=== PATIENT | female | born 1985 | race Caucasian/White ===

== ENCOUNTER 2017-07-26 09:43 | Emergency (ER) | payer OTHER ==
[2017-07-26 09:49] VITALS: BP 129/87; PULSE 104; TEMP 98.6; BMI 37.3
--- NOTE | 2017-07-26 11:21 | PDOC ---
History of Present Illness - General Chief Complaint: Sore Throat Stated Complaint: Sore Throat Time Seen by Provider: 07/26/17 10:53 History Source: Patient Exam Limitations: No Limitations - History of Present Illness Initial Comments: 07/26/17 11:16 Patient is here with complaints of one week cough, cold symptoms, runny nose from cleared now turned to yellow green and low-grade fevers. 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 Has used svnw-zop-ghrhmpu medications with minimal resolved. Timing/Duration: unsure, 1 week Severity: mild, moderate Associated Symptoms: reports: chest pain, cough, fever/chills, headaches, malaise Past History - Travel Traveled outside of the country in the last 30 days: No Close contact w/someone who was outside of country & ill: No - Past Medical History Allergies/Adverse Reactions: Allergies Allergy/AdvReac Type Severity Reaction Status Date / Time No Known Allergies Allergy Verified 07/26/17 09:49 Home Medications: Ambulatory Orders Azithromycin [Zithromax -] 250 mg PO UTDICT #6 tab 07/26/17 COPD: No DVT: No Diabetes: No - Suicide/Smoking/Psychosocial Hx Smoking History: Never smoked Hx Alcohol Use: Yes (SOCIAL) Drug/Substance Use Hx: No Substance Use Type: None Review of Systems - Review of Systems Able to Perform ROS?: Yes Is the patient limited Libyan proficient: Yes Constitutional: Yes: Symptoms Reported, See HPI, Fever, Malaise HEENTM: Yes: Symptoms Reported, See HPI, Nose Congestion Respiratory: Yes: Symptoms reported, See HPI, Cough. No: Shortness of Breath, Wheezing Musculoskeletal: Yes: Symptoms Reported Integumentary: Yes: Symptoms Reported, See HPI. No: Bruising Neurological: Yes: See HPI. No: Symptoms reported, Headache All Other Systems: Reviewed and Negative *Physical Exam - Vital Signs Last Vital Signs Temp Pulse Resp BP Pulse Ox 98.6 F 104 H 20 129/87 100 07/26/17 09:45 07/26/17 09:45 07/26/17 09:45 07/26/17 09:45 07/26/17 09:45 - Physical Exam General Appearance: Yes: Appropriately Dressed, Apparent Distress HEENT: positive: NADIYA, Normal ENT Inspection, TMs Normal (congested but landmarks intact ), Pharynx Normal, Nasal Congestion, Rhinorrhea, Sinus Tenderness. negative: Tonsillar Exudate, Tonsillar Erythema, TM Bulging Neck: positive: Supple. negative: Tender, Lymphadenopathy (R), Lymphadenopathy (L) Respiratory/Chest: positive: Lungs Clear, Normal Breath Sounds Gastrointestinal/Abdominal: positive: Normal Bowel Sounds, Soft. 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, Fully Oriented, Alert, Normal Mood/ Affect, Normal Response, Motor Strength 5/5 *DC/Admit/Observation/Transfer Diagnosis at time of Disposition: Common cold - Discharge Dispostion Disposition: HOME Condition at time of disposition: Stable Admit: No - Prescriptions Prescriptions: Azithromycin [Zithromax -] 250 mg PO UTDICT #6 tab - Referrals Referrals: STAFF,NOT ON [Primary Care Provider] - - Patient Instructions Printed Discharge Instructions: DI for Common Cold Additional Instructions: Rest, drink lots of fluids: Teas, water, soups, Pedialyte Saltwater gargles Steamy showers/seem to face break up mucus Avoid contact with others until fevers and cough resolved Lots of handwashing and good hygiene Continue clzb-wuz-hkbtpct medications for symptomatic relief Tylenol or Motrin for fever and pain Azithromycin, to start if symptoms worsen, fevers go greater than 101, ear pain , sore throat pain, worsening of symptoms Followup with private physician in one to 2 days as needed Return to emergency department for worsened symptoms, fevers, dehydration - Post Discharge Activity Forms/Work/School Notes: Back to Work
== END 2017-07-26 11:30 | disposition home or self-care (01) ==
LOC: JERFT 09:43
DX: J00 Acute nasopharyngitis [common cold] (principal)
CPT/HCPCS: 99281-25

== ENCOUNTER 2019-06-18 06:35 | Inpatient (IN) | payer OTHER ==
[2019-06-18] MEDS ORDERED: ELECTROLYTE-148 SOLN 1,000 ML IV SCH ×3 (06:45→08:15)
[2019-06-18] MEDS ORDERED: ePHEDrine SULFATE 50 MG/1 ML AMPULE ONE (07:27)
[2019-06-18] MEDS ORDERED: morphine SULFATE/PF 0.5 MG/ML (2cc Syringe - QUVA) ONE (07:34)
[2019-06-18] MEDS ORDERED: ROCURONIUM BROMIDE 50 MG/5 ML VIAL ONE (07:35)
[2019-06-18] MEDS ORDERED: CITRIC ACID/SODIUM CITRATE 30 ML UNIT-DOSE CUP PO ONE (07:45)
[2019-06-18 08:01] VITALS: BMI 42.8
[2019-06-18] MEDS ORDERED: ONDANSETRON 4 MG/2 ML VIAL IVPUSH PRN (08:03)
--- NOTE | 2019-06-18 08:04 | HP ---
Past Medical History - Primary Care Physician PCP:: Negrita Mcintosh - Admission Chief Complaint: Prev CS x 1. AMA. 39 week. Obesity History of Present Illness: 33 yo 2 P1 EDC 06/25/19 EGA 39 week admitted ama obesity with prev CS for repeat CS History Source: Patient Limitations to Obtaining History: No Limitations - Past Medical History ...: 2 ...Para: 1 Heme/Onc: Yes: Other (Sickle cell trait) - Past Surgical History Past Surgical History: Yes: Hx Myomectomy: No Hx Transabdominal Cerclage: No - Smoking History Smoking history: Never smoked Have you smoked in the past 12 months: No - Alcohol/Substance Use Hx Alcohol Use: Yes (SOCIAL) History of Substance Use: reports: None - Social History Usual Living Arrangement: Yes: With Spouse Do you think of yourself as: Straight/Heterosexual History of Recent Travel: No Home Medications - Allergies Allergies/Adverse Reactions: Allergies Allergy/AdvReac Type Severity Reaction Status Date / Time No Known Allergies Allergy Verified 06/18/19 07:19 - Home Medications Home Medications: Ambulatory Orders Vitamins (Sjr) - 1 tab PO DAILY 06/14/19 Review of Systems - Review of Systems Constitutional: reports: No Symptoms Eyes: reports: No Symptoms HENT: reports: No Symptoms Neck: reports: No Symptoms Cardiovascular: reports: No Symptoms Respiratory: reports: No Symptoms Gastrointestinal: reports: No Symptoms Genitourinary: reports: No Symptoms Breasts: reports: No Symptoms Reported Musculoskeletal: reports: No Symptoms Integumentary: reports: No Symptoms Neurological: reports: No Symptoms Endocrine: reports: No Symptoms Hematology/Lymphatic: reports: No Symptoms Psychiatric: reports: No Symptoms Physical Exam - Maternity Constitutional: Yes: Well Nourished, No Distress, Obese Cardiovascular: Yes: WNL Breast(s): Yes: WNL - Abdominal Exam/OB Fundal Height: 39 Number of Fetuses: Single Presentation: Vertex Contractions: No Heart Rate Location: LLQ Category: I - Vaginal Exam/OB Amniotic Membrane Status: Intact Presentation: Vertex/Position - Physical Exam Musculoskeletal: Yes: WNL Extremities: Yes: WNL Edema: No Psychiatric: Yes: WNL, Alert, Oriented Hemorrhage Risk Assessment - Risk Factors Medium Risk Factors: Yes: Prior , uterine surgery,or multiple laparotomies Risk Score: 1 Risk Level: Medium Risk Problem List - Problems (1) Previous delivery affecting , antepartum Code(s): O34.219 - MATERNAL CARE FOR UNSP TYPE SCAR FROM PREVIOUS DEL (2) Obesity (BMI 35.0-39.9 without comorbidity) Code(s): E66.9 - OBESITY, UNSPECIFIED (3) 39 weeks gestation of Code(s): Z3A.39 - 39 WEEKS GESTATION OF Assessment/Plan Previous Section X 1 AMA 39 weeks obesity Cat 1 sickle cell trait Plan Repeat Section
[2019-06-18] MEDS ORDERED: IBUPROFEN 600 MG TABLET (FP) PO PRN (08:14)
[2019-06-18] MEDS ORDERED: IBUPROFEN 800 MG/8 ML IJ IVPB PRN (08:14)
[2019-06-18] MEDS ORDERED: BENZOCAINE 28 GM HEMORRHOIDAL OINTMENT TP PRN (08:14)
[2019-06-18] MEDS ORDERED: METHYLERGONOVINE MALEATE 0.2 MG/1 ML AMP IM PRN (08:14)
--- NOTE | 2019-06-18 08:27 | OP ---
Operative Note - Note: Operative Date: 06/18/19 Pre-Operative Diagnosis: Previous Section. Obesity. 39 week Operation: Repeat Section Findings: Live male infant 10lb 6oz Post-Operative Diagnosis: Same as Pre-op Surgeon: Negrita Mcintosh Program Management Intern: Yolande Chung Anesthesia: General Estimated Blood Loss (mls): 600 Operative Report Dictated: Yes
[2019-06-18] MEDS ORDERED: PROPOFOL 20 ML ONE (08:51)
[2019-06-18] MEDS ORDERED: ceFAZolin SODIUM 1 GM VIAL ONE (09:07)
[2019-06-18] MEDS ORDERED: KETOROLAC TROMETHAMINE 30 MG/1 ML VIAL ONE (09:22)
--- NOTE | 2019-06-18 09:33 | SURG ---
Surgery Negotiator Note Negotiator: Yolande Chung PA-C Date of Service: 06/18/19 Diagnosis: Previous Section. Obesity. 39 week Procedure: Repeat Cearean Section I was present for the entirety of the operative procedure. For further detail, please refer to operative report. Visit type - Case Type Case Type: Scheduled - Emergency Emergency Visit: No - New patient This patient is new to me today: Yes Date on this admission: 06/18/19
[2019-06-18] MEDS ORDERED: PRENATAL VITAMINS W/ FOLIC ACID TABLET (FP) PO SCH (10:00)
[2019-06-18] MEDS: OXYTOCIN 20 UNITS in 0.9% NS 20 UNIT/1,000 ML INFUS.BAG IV SCH ×2 (10:45→22:00)
--- NOTE | 2019-06-18 11:04 | OP ---
DATE OF OPERATION: 06/18/2019 PREOPERATIVE DIAGNOSIS: Obesity, intrauterine at 39 weeks, previous section. OPERATION: Repeat section. POSTOPERATIVE DIAGNOSIS: Obesity, intrauterine at 39 weeks, previous section, live male infant. SURGEON: Negrita Mcintosh MD DIRECTOR OF DEVELOPMENT: BRIAN Lopez ANESTHESIA: Spinal. DESCRIPTION OF PROCEDURE: Patient was taken to the operating room, placed in supine position, prepped and draped in the usual sterile fashion. Time-out was performed in accordance with hospital regulation. Pfannenstiel skin incision was made through the patient's previous scar. Cautery was then used to cut through layers of abdominal wall to the level of the fascia. Fascia was cut in the midline, and cautery was then used to open the fascia in smiling fashion. Kochers were then used to bluntly and sharply dissect the rectus muscles off the fascia. Muscles were split in the midline. Peritoneal cavity was then entered and carried upward and downward. Bladder retractor was then placed. Scalpel was then used to make a low transverse uterine incision. Incision was carried upward using bandage scissors. A live male infant was delivered in OT position. Nose and mouth suction performed. Shoulders were delivered without difficulty. Cord was clamped and cut. Cord blood obtained. Delayed cord clamping was done. Infant was handed to mobile tester. Cord pH obtained. Cord blood obtained. Placenta was manually extracted from the uterus. Uterus was exteriorized and cleaned with clean lap pads. Uterine incision then closed using 0 Biosyn suture, 1st layer continuous and locking, 2nd layer imbricating the 1st layer. Hemostasis was achieved. Tubes and ovaries noted to be normal. Uterus interiorized. Abdominal cavity cleaned with clean lap pads. Abdominal sweep done. Peritoneum closed using 0 Biosyn suture in a continuous stitch. Muscle was approximated in the midline using 0 Biosyn suture. Fascia was then closed using 0 Vicryl suture in 2 ports. Skin was then closed using 3-0 Vicryl in subcuticular fashion. Wound was washed and dressed. Patient tolerated procedure well. Was taken to recovery room in stable condition. Estimated blood loss 600 mL. NEGRITA MCINTOSH M.D. [id number]
[2019-06-19] MEDS ORDERED: oxyCODONE HCL 5 MG TABLET PO PRN ×2 (08:14)
[2019-06-19] MEDS ORDERED: BISACODYL 10 MG SUPP.RECT RC PRN (08:14)
[2019-06-19] MEDS: ACETAMINOPHEN 325 MG TABLET (FP) PO PRN ×3 (09:41→22:07)
[2019-06-19] MEDS: SIMETHICONE 80 MG TAB.CHEW (FP) PO PRN ×3 (09:41→22:07)
[2019-06-19] MEDS: PRENATAL VITAMINS W/ FOLIC ACID TABLET (FP) PO SCH (09:41)
[2019-06-19] MEDS: IBUPROFEN 600 MG TABLET (FP) PO PRN ×3 (09:44→22:07)
[2019-06-19] MEDS ORDERED: DIPHTH,PERTUSS(ACELL),TET 0.5 ML DISP.SYRIN IM ONE (10:00)
--- NOTE | 2019-06-19 10:48 | PN ---
Progress Note, Physician Chief Complaint: s/p c section post op day one History of Present Illness: under spinal anesthesia with duramorph for post op pain control - Current Medication List Current Medications: Active Medications Acetaminophen (Tylenol -) 650 mg PO Q4H PRN PRN Reason: PAIN Last Admin: 06/19/19 09:41 Dose: 650 mg Benzocaine (Americaine Ointment -) 1 applic TP PRN PRN PRN Reason: Pain - Topical Bisacodyl (Dulcolax Suppository -) 10 mg RC PRN PRN PRN Reason: CONSTIPATION Diphenhydramine HCl (Benadryl Injection -) 25 mg IVPUSH Q4H PRN PRN Reason: Pruritis Oxytocin/Sodium Chloride (Normal Saline+20 Units Oxytocin -) 20 unit in 1,000 mls @ 125 mls/hr IV ASDIR BETHEL Last Admin: 06/18/19 22:00 Dose: 125 mls/hr Ibuprofen (Motrin -) 600 mg PO Q4H PRN PRN Reason: PAIN LEVEL 1-5 Last Admin: 06/19/19 09:44 Dose: 600 mg Ibuprofen (Caldolor Injection -) 800 mg IVPB Q8H PRN PRN Reason: FEVER Last Admin: 06/19/19 02:28 Dose: 800 mg Ibuprofen (Motrin -) 600 mg PO Q4H PRN PRN Reason: PAIN LEVEL 1 - 3 Methylergonovine Maleate (Methergine Injection -) 0.2 mg IM Q4H PRN PRN Reason: Excessive Bleeding (L&D) Ondansetron HCl (Zofran Injection) 4 mg IVPUSH Q4H PRN PRN Reason: NAUSEA Oxycodone HCl (Roxicodone -) 5 mg PO Q4H PRN PRN Reason: PAIN LEVEL 4 - 6 Oxycodone HCl (Roxicodone -) 10 mg PO Q4H PRN PRN Reason: PAIN LEVEL 7 - 10 Multivit/Folic Acid/Iron ( Vitamins (Sjr) -) 1 tab PO DAILY BETHEL Last Admin: 06/19/19 09:41 Dose: 1 tab Simethicone (Mylicon -) 80 mg PO Q4H PRN PRN Reason: GAS Last Admin: 06/19/19 09:41 Dose: 80 mg - Objective Vital Signs: Vital Signs Temperature 98 F 1211/19 09:01 Pulse Rate 94 H 06/19/19 09:01 Respiratory Rate 18 06/19/19 10:00 Blood Pressure 147/77 06/19/19 09:01 O2 Sat by Pulse Oximetry (%) 98 06/18/19 10:30 Constitutional: Yes: Well Nourished Cardiovascular: Yes: WNL, Other Respiratory: Yes: WNL Gastrointestinal: Yes: WNL Assessment/Plan No adverse events, pain controlled, dept of anesthesiology will sign off care at this time
[2019-06-19 11:01] LABS: BASO % 0.6 % (0-2.0); EOS % 0.5 % (0-4.5); HEMATOCRIT 31.8 % (32.4-45.2); HEMOGLOBIN 10.9 GM/dL (10.7-15.3); LYMPH % 13.9 % (8-40); MCH 28.2 pg (25.7-33.7); MCHC 34.1 g/dl (32.0-36.0); MEAN CELL VOLUME 82.7 fl (80-96); MONO % 7.1 % (3.8-10.2); NEUT % 77.9 % (42.8-82.8); PLATELET COUNT 146 K/MM3 (134-434); RBC 3.85 M/mm3 (3.60-5.2); RDW 14.1 % (11.6-15.6); WHITE BLOOD COUNT 7.6 K/mm3 (4.0-10.0)
--- NOTE | 2019-06-19 15:31 | PN ---
Post Note - Post Date of Delivery: 06/18/19 Vital Signs: Vital Signs - 24 hr 06/18/19 06/18/19 06/18/19 16:00 17:00 18:00 Temperature 98.0 F Pulse Rate 81 Respiratory 18 18 18 Rate Blood Pressure 136/76 06/18/19 06/18/19 06/18/19 19:00 20:00 21:00 Temperature Pulse Rate Respiratory 18 20 20 Rate Blood Pressure 06/18/19 06/18/19 06/19/19 22:00 23:00 00:00 Temperature 98.4 F Pulse Rate 89 Respiratory 20 20 20 Rate Blood Pressure 128/76 06/19/19 06/19/19 06/19/19 01:00 02:00 03:00 Temperature 98.1 F Pulse Rate 80 Respiratory 20 18 18 Rate Blood Pressure 113/67 06/19/19 06/19/19 06/19/19 04:00 05:00 06:00 Temperature 98.3 F Pulse Rate 94 H Respiratory 18 18 18 Rate Blood Pressure 128/69 06/19/19 06/19/19 06/19/19 07:00 08:00 09:00 Temperature Pulse Rate Respiratory 18 18 18 Rate Blood Pressure 06/19/19 06/19/19 06/19/19 09:01 10:00 11:00 Temperature 98 F Pulse Rate 94 H Respiratory 18 18 18 Rate Blood Pressure 147/77 06/19/19 06/19/19 06/19/19 12:00 13:00 14:00 Temperature Pulse Rate Respiratory 18 18 18 Rate Blood Pressure Labs: Laboratory Results - last 24 hr 06/19/19 10:40 WBC 7.6 RBC 3.85 Hgb 10.9 Hct 31.8 L MCV 82.7 MCH 28.2 MCHC 34.1 RDW 14.1 Plt Count 146 MPV 10.0 Absolute Neuts (auto) 5.9 Neutrophils % 77.9 Lymphocytes % 13.9 D Monocytes % 7.1 Eosinophils % 0.5 Basophils % 0.6 Nucleated RBC % 0 - Subjective Subjective: No Complaints - Objective Afebrile: Yes Breast: Not engorged
[2019-06-19] MEDS: OXYTOCIN 20 UNITS in 0.9% NS 20 UNIT/1,000 ML INFUS.BAG IV SCH (19:30)
[2019-06-20] MEDS: ACETAMINOPHEN 325 MG TABLET (FP) PO PRN ×4 (02:41→22:31)
[2019-06-20] MEDS: IBUPROFEN 600 MG TABLET (FP) PO PRN ×4 (02:41→22:31)
[2019-06-20] MEDS: SIMETHICONE 80 MG TAB.CHEW (FP) PO PRN ×4 (02:41→22:31)
[2019-06-20] MEDS: PRENATAL VITAMINS W/ FOLIC ACID TABLET (FP) PO SCH (10:18)
--- NOTE | 2019-06-20 18:47 | PN ---
Post Note - Post Date of Delivery: 06/18/19 Post Day: 2 Vital Signs: Vital Signs - 24 hr 06/19/19 06/20/19 22:00 10:00 Temperature 98.3 F 97.9 F Pulse Rate 89 79 Respiratory 18 18 Rate Blood Pressure 132/74 128/75 - Subjective Subjective: No Complaints - Objective Afebrile: Yes Breast: Not engorged Abdomen: Soft, Non-tender, Other (Incision intact no drainage) Uterus: Fundus firm Vagina: Scant lochia Extremities: Non-tender - Assessment/Plan (1) Previous delivery affecting , antepartum Assessment: Other (POD 2) Plan: Routine Care
[2019-06-21] MEDS: SIMETHICONE 80 MG TAB.CHEW (FP) PO PRN (04:10)
[2019-06-21] MEDS: IBUPROFEN 600 MG TABLET (FP) PO PRN (04:10)
[2019-06-21] MEDS: ACETAMINOPHEN 325 MG TABLET (FP) PO PRN (04:10)
--- NOTE | 2019-06-21 08:07 | DS ---
Physical Exam-INTERNIST MEDICAL DOCTOR MD Vital Signs: Vital Signs Temperature 98.1 F 06/20/19 22:00 Pulse Rate 85 06/20/19 22:00 Respiratory Rate 18 06/20/19 22:00 Blood Pressure 135/76 06/20/19 22:00 O2 Sat by Pulse Oximetry (%) 98 06/18/19 10:30 Constitutional: Yes: Well Nourished, No Distress Labs: CBC, BMP 06/19/19 10:40 Delivery - Delivery Type of Anesthesia: Spinal Episiotomy/Laceration: None EBL (cc): 600 Delivery, Single - Stages of Labor Date of Delivery: 06/18/19 Time of Delivery: 08:44 Time Placenta Delivered: 08:45 - Condition of Infant Hot Pipe Gauger/Docking Pilot Present: Yes Name: Adalgisa Delacruz Gender: Male Weight: 10 lb 6 oz Position: Right, OT Total Hours ROM (Hrs/Mins): 0/2 - 1 Minute Total Score: 9 5 Minutes Total Score: 9 - Feeding Plan Initial Plan: Elected not to breastfeed exclusively throughout hospitalization Discharge Summary Problems reviewed: Yes Reason For Visit: REPEAT CSECTION Current Active Problems 39 weeks gestation of (Acute) Obesity (BMI 35.0-39.9 without comorbidity) (Acute) Previous delivery affecting , antepartum (Acute) Condition: Good - Instructions Diet, Activity, Other Instructions: Physical activity Resume your normal everyday activity as tolerated no heavy lifting or exercise until seen by your surgeon. You may walk unlimited ted of and climb stairs. You may resume driving the car when you feel safe and comfortable behind the wheel. No sexual activity as instructed. Wound care If you have a bandage, leave it on, and keep dry for 48-72 hours. After that time discard the outer bandage. If they are tapes on the skin under the out of bandage leave them in place. They will peel off in the next 7 to 10 days. Do Not Peel them off. You may shower the day after surgery. If there are tapes present on the skin, you may shower over them. Diet There are no dietary restrictions. Eat healthy, high-fiber foods. Drink 6 to 8 glasses of liquid each day. This will assist in keeping your bowels are regular. Pain management You may take Tylenol or acetaminophen or Ibuprofen (for example, Motrin, Advil etc.) from my pain prescription medication is ordered should be taken as prescribed for moderate to severe pain. Call MD for any of the following: Severe pain not relieved by medication Fever of 101 or higher Excessive bleeding or drainage on dressing Inability to urinate Referrals: Negrita Mcintosh MD [Staff Physician] - Disposition: HOME - Home Medications Comprehensive Discharge Medication List: Ambulatory Orders Vitamins (Sjr) - 1 tab PO DAILY 06/14/19 Ibuprofen [Motrin -] 600 mg PO QID #28 tablet 06/18/19
[2019-06-21 09:23] LABS: BASO % 0.3 % (0-2.0); EOS % 1.9 % (0-4.5); HEMATOCRIT 29.1 % (32.4-45.2); HEMOGLOBIN 9.9 GM/dL (10.7-15.3); LYMPH % 21.8 % (8-40); MCH 27.9 pg (25.7-33.7); MCHC 34.1 g/dl (32.0-36.0); MEAN PLT VOLUME 9.9 fl (7.5-11.1); MONO % 5.8 % (3.8-10.2); NEUT % 70.2 % (42.8-82.8); PLATELET COUNT 169 K/MM3 (134-434); RBC 3.55 M/mm3 (3.60-5.2); RDW 14.1 % (11.6-15.6); WHITE BLOOD COUNT 4.8 K/mm3 (4.0-10.0)
[2019-06-21] MEDS: PRENATAL VITAMINS W/ FOLIC ACID TABLET (FP) PO SCH (09:30)
[2019-06-21 10:35] VITALS: BP 131/73; PULSE 77; TEMP 97.8
--- NOTE | 2019-06-26 15:12 | PATH ---
Surgical Pathology Report Patient Name: BIRGIT GARCIA Med. Rec. 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 Specimen(s) Received PLACENTA Clinical History , 39 weeks for repeat Final Diagnosis PLACENTA: THIRD TRIMESTER PLACENTA. TRIVASCULAR CORD. MEMBRANES WITH NO DIAGNOSTIC ABNORMALITIES. Electronically Signed Denilson Alejo M.D. Gross Description The specimen is received fresh labeled placenta and is a 759 gram, 19.5 x 14.0 x 3.0 cm. placenta with attached membranes and umbilical cord. The attached membranes are rizvi, translucent with focal opacities and insert marginally. The umbilical cord measures 22 cm. in length and averages 1.4 cm. in diameter. The cord inserts eccentrically, 2 cm. to the nearest margin. No true knots or strictures are identified. Cut surface of the umbilical cord reveals 3 vessels. The surface is lopez blue with moderate fibrin deposition and appropriate caliber vessel. The maternal surface is red-brown with focal defects. Sectioning reveals red-brown, spongy parenchyma. No lesions are identified. Shower Room Attendant sections are submitted in three cassettes as follows: 1- membrane rolls and umbilical cord; 2-3- full thickness sections of placenta. 06/25/2019 [facility]06/25/2019
== END 2019-06-21 13:15 | disposition home or self-care (01) | DRG 807 ==
LOC: JLDR 06:35 → J3W 11:03
PROVIDERS: ADMIT Obstetrics & Gynecology; ATTEND Obstetrics & Gynecology
PROC: 10E0XZZ Delivery of Products of Conception, External Approach (ICD-10-PCS; principal; 2019-06-18)
DX: O34.219 Maternal care for unspecified type scar from previous cesarean delivery (principal); Z37.0 Single live birth; Z3A.39 39 weeks gestation of pregnancy
CPT/HCPCS: 36415; 36600; 82803; 85025; 88307-TC; 90715

== ENCOUNTER → 2022-10-05 | Day surgery (SDC) | payer OTHER | END | disposition home or self-care (01) | LOC: JRADUS-SUR 12:26 | PROVIDERS: ATTEND Obstetrics & Gynecology | PROC: 0H9U3ZX Drainage of Left Breast, Percutaneous Approach, Diagnostic (ICD-10-PCS; principal; 2022-10-05) | DX: N61.22 Granulomatous mastitis, left breast (principal) | CPT/HCPCS: 19083; 77065-TC; 87899; 88305-TC; 88312-TC; 88341-TC; 88342-TC; A4648 ==

== ENCOUNTER → 2024-09-04 | Day surgery (SDC) | payer OTHER | END | disposition home or self-care (01) | LOC: FMAMMOTONE 13:01 | PROVIDERS: ATTEND Surgery | PROC: 0HBT3ZX Excision of Right Breast, Percutaneous Approach, Diagnostic (ICD-10-PCS; principal; 2024-09-04) | DX: Z53.8 Procedure and treatment not carried out for other reasons (principal) | CPT/HCPCS: 19081; 77065-TC; G0279-TC ==